=== PATIENT | female | born 1945 | race Two or more races ===

== ENCOUNTER 2018-09-10 10:03 | Day surgery (SDC) | payer MEDICARE, OTHER ==
[2018-09-09 15:23] VITALS: BMI 28.1
[2018-09-10] VITALS (10 sets, daily range): BP systolic 119–151; BP diastolic 45–74; PULSE 68–90; RESP 12–25; Ht 167.6 cm; Wt 80.0 kg
[~2018-09-10] VITALS: Ht 167.6 cm; Wt 80.0 kg
[~2018-09-10 10:03] MED LIST: CEFAZOLIN 2 GM/50 ML (PMX) 50 ML IVPB ONE; LACTATED RINGER'S 1,000 ML IV* ONE
[2018-09-10] MEDS ORDERED: PRAV20TA2 ORAL (10:41)
[2018-09-10] MEDS ORDERED: RANI300T ORAL (10:41)
[2018-09-10] MEDS ORDERED: LISI-471 ORAL (10:41)
[2018-09-10] MEDS ORDERED: CALC1TAB79 PO (10:43)
[2018-09-10] MEDS ORDERED: BUPR75TA9 PO (10:43)
[2018-09-10] MEDS ORDERED: HYDR12.58 PO (10:46)
[2018-09-10] MEDS ORDERED: MELO15TA30 PO (10:46)
[2018-09-10] MEDS ORDERED: IBAN150T7 PO (10:46)
[2018-09-10] MEDS ORDERED: TRIA15CR55 TOP (10:46)
--- NOTE | 2018-09-10 11:03 | HPN ---
Date/Time of Note Date/Time of Note DATE: 09/10/18 TIME: 11:03 Interval H&P Admission Note Pt. seen H&P reviewed: No system changes LUIS CARLOS GRIFFIN September 10, 2018 11:03
[2018-09-10] MEDS ORDERED: BUPIVACAINE 0.5% (SDV) 30 ML INJ ONE (11:46)
--- NOTE | 2018-09-10 12:13 | PREAC ---
Date/Time of Note Date/Time of Note DATE: 09/10/18 TIME: 12:11 Anesthesia Eval and Record Evaluation Time Pre-Procedure Interview DATE: 09/10/18 TIME: 12:11 Age 72 Sex female NPO: 6 hrs (toast at 6 am - surgeon will do case local only _MAC no sedation) Preoperative diagnosis right index fingert deep mass Planned procedure excision right index finger deep mass at distal phalanx measuring one centimeter by one centimeter Past Medical History Past Medical History: Includes Cardio: HTN, Dyslipidemia GI: GERD Psych: Depression Surgery & Anesthesia Issues No known issue Meds Anticoagulation: No Beta Judah within 24 hr: No Reason Beta Judah not given: Pt. not on B-Judah Reported Medications Triamcinolone Acetonide* (Kenalog*) 0.1%-15GM Cr, 1 APPLIC TOP BID, #1 TUB 09/10/18 Meloxicam* (Mobic*) 15 Mg Tablet, 7.5 MG PO DAILY, #30 TAB 09/10/18 Ibandronate Sodium* (Boniva*) 150 Mg Tablet, 150 MG PO Q28D, TAB 09/10/18 Hydrochlorothiazide* (Hydrochlorothiazide*) 12.5 Mg Tablet, 12.5 MG PO DAILY, #60 TAB 09/10/18 Calcium Carbonate/Vitamin D3 (Oysco 500+D Tablet) 1 Each Tablet, 1 TAB PO BID, TAB 09/10/18 Bupropion Hcl* (Bupropion Hcl*) 75 Mg Tablet, 75 MG PO DAILY, TAB 09/10/18 Pravastatin Sodium (Pravastatin Sodium) 20 Mg Tablet, 1 TAB ORAL QHS 09/10/18 Lisinopril* (Lisinopril*) 20 Mg Tablet, 1 TAB ORAL DAILY 09/10/18 Ranitidine Hcl* (Ranitidine Hcl*) 300 Mg Tablet, 1 CAP ORAL QHS 09/10/18 Current Medications Lactated Ringer's 1,000 ml @ 20 mls/hr Q24H ONCE IV* ; Start 09/10/18 at 07:30; Stop 09/11/18 at 07:29 Meds reviewed: Yes Allergies Coded Allergies: No Known Allergy (Unverified , 09/10/18) Allergies Reviewed: No Labs/Studies Labs Reviewed: Reviewed by anesthesiologist test: N/A Pre-procedure Exam Last vitals Vital Signs Date Temp Pulse Resp B/P (MAP) Pulse Ox O2 O2 Flow FiO2 Time Delivery Rate 09/10/18 98.8 68 16 138/63 99 Room Air 11:24 (88) Airway: Adequate mouth opening, Adequate thyromental dist Mallampati: Mallampati II Teeth: Normal (paupper partial lower partial) Lung: Normal Heart: Normal ASA Physical Status ASA physical status: 2 Emergency: None Planned Anesthetic General/MAC: MAC (no sedation just local by surgeon) Pre-operative Attestations Prior to commencing anesthesia and surgery, the patient was re-evaluated, there was verification of: *The patient's identity *The results of appropriate recent lab work and preoperative vital signs *The above evaluation not changing prior to induction *Anesthetic plan, risk benefits, alternative and complications discussed with patient/family; questions answered; patient/family understands, accepts and wishes to proceed. LOBITO GOOD CRNA September 10, 2018 12:13
[2018-09-10] MEDS ORDERED: CEFAZOLIN 1 GM INJ ONE (12:23)
--- NOTE | 2018-09-10 12:54 | PAC ---
Date/Time of Note Date/Time of Note DATE: 09/10/18 TIME: 12:53 Post-Anesthesia Notes Post-Anesthesia Note Last documented vital signs Vital Signs Date Temp Pulse Resp B/P (MAP) Pulse Ox O2 O2 Flow FiO2 Time Delivery Rate 09/10/18 98.7F 81 12 130/65 100 Room Air 12:51 Activity: WNL Respiratory function: WNL Cardiovascular function: WNL Mental status: Baseline Pain reasonably controlled: Yes Hydration appropriate: Yes Nausea/Vomiting absent: Yes LOBITO GOOD CRNA September 10, 2018 12:54
[2018-09-10] MEDS ORDERED: BUPIVACAINE 0.5% (SDV) 30 ML INJ INJ ONE (12:56)
[2018-09-10] MEDS ORDERED: ONDANSETRON 4 MG INJ IV PRN (13:00)
[2018-09-10] MEDS ORDERED: OXYCODONE/ACETAMINOPHEN (5/325) TAB PO PRN (13:00)
[2018-09-10] MEDS ORDERED: KETOROLAC 30 MG INJ IV PRN (13:00)
[2018-09-10] MEDS ORDERED: HYDROmorphONE 1 MG/5 ML IV SYRINGE IV PRN (13:00)
[2018-09-10] MEDS ORDERED: FENTAnyl 50 MCG/ML VIAL IV PRN (13:00)
--- NOTE | 2018-09-10 16:23 | OPPN ---
Date/Time of Note Date/Time of Note DATE: 09/10/18 TIME: 16:22 Operative Report Preoperative Diagnosis Right index finger deep mass 1cm x 1cm Postoperative Diagnosis Right index finger deep mass 1cm x 1cm Operation/Procedure Performed Right index finger deep mass 1cm x 1cm excision Surgeon see signature line clinic assistant none Anesthesia: general, MAC Estimated blood loss: 0 - 10 ml's Transfusion Required none Specimen right index finger mass Grafts/Implants none Complications none LUIS CARLOS GRIFFIN September 10, 2018 16:23
--- NOTE | 2018-09-10 19:23 | OPR ---
DATE OF OPERATION: 09/10/2018 SURGEON: Chas Fuentes MD ANESTHESIA: Local MAC. PREOPERATIVE DIAGNOSIS: Right index finger deep mass measuring 1 cm x 1 cm. POSTOPERATIVE DIAGNOSIS: Right index finger deep mass measuring 1 cm x 1 cm. PROCEDURE: Excision of the deep mass, right index finger, measuring 1 cm x 1 cm. OPERATIVE FINDINGS: Deep mass, right index finger with adherence to the deep dermal surface. INDICATION FOR PROCEDURE: A 72-year-old female with longstanding right index finger mass who failed conservative measures and elected to proceed with surgical intervention, understanding the risks and benefits. DESCRIPTION OF PROCEDURE: The patient was seen in the preoperative area. All further questions were answered. Again, she gave informed consent understanding risks and benefits. She was taken to oper ative suite and placed in supine position. Ancef 2 grams IV was given as was sedation IV. Tournique t placed in the right upper extremity and right upper extremity was prepped with ChloraPrep stick and draped in usual sterile fashion. Esmarch bandage was used to exsanguinate the extremity and tourniq uet inflated to 250 mmHg. A digital nerve block was performed with a total of 12 mL of 0.5% Marcaine injected at the base of the right index finger. After adequate anesthesia, a mid axial incision ove r the right index finger mass was utilized with sharp dissection carried down through skin and subcut aneous tissue. The mass was adherent to the deep dermis and the central portion was excised with the epidermis and dermis attached. The outer edges of the mass were elevated from the deep dermal surfa ce and excised with the skin preserved. This allowed for primary closure. [facility] and wound was copiously irrigated. Skin closed with 4-0 nylon. Xeroform was placed on the wou nd followed by sterile gauze, Webril, and bias dressing. Tourniquet deflated after 12 minutes. The patient was awakened from anesthesia. She was taken to postoperative suite in stable condition, tole rated procedure well without complication. SPECIMENS: Right index finger mass. ESTIMATED BLOOD LOSS: 5 mL COUNTS: Sponge, instrument, needle counts correct. TOURNIQUET TIME: 12 minutes. CONDITION ON DISCHARGE: Stable. The patient was given nonrefillable 5-day prescription for pain medication for surgery today. Dictated By: CHAS COLVIN/SHIVANI Conf#: [id number] DID#: [id number]
== END 2018-09-10 14:52 | disposition home or self-care (01) ==
LOC: SDS 10:03
PROVIDERS: ATTEND Orthopaedic Surgery Hand Surgery
DX: D21.11 Benign neoplasm of connective and other soft tissue of right upper limb, including shoulder (principal); I10 Essential (primary) hypertension; E78.5 Hyperlipidemia, unspecified
CPT/HCPCS: 26115; 88307; 88341; 88342; J0690